=== PATIENT | female | born 1990 | race African-American/Black ===

== ENCOUNTER 2019-10-28 20:06 | Emergency (ER) | payer OTHER, MEDICAID ==
[~2019-10-28] VITALS: Ht 160 cm; Wt 136.1 kg
[~2019-10-28 20:06] MED LIST: CLEOCIN HCL150 MG PO; FLEXERIL PO; HYDROCODONE-APA1 TA1 PO; IBUPROFEN 800800 M1 PO; ONDANSETRON HCL4 M2 PO; PENICILLIN VK500 M1 PO
[2019-10-28 20:59] LABS: HEMATOCRIT 36.1 % (37.0-47.0); HEMOGLOBIN 12.2 gm/dL (12.0-15.0); MCHC 33.8 g/dL (28.0-37.0); MCV 82.8 fL (80.0-100.0); NUCLEATED RBCS 0 /100WBC; PLATELET COUNT* 323 thou/uL (150-400); RBC 4.35 mil/uL (4.20-5.00); RDW-CV 13.7 % (10.5-14.5)
[2019-10-28 21:07] LABS: CALCIUM 8.4 mg/dL (8.5-10.1); POTASSIUM 3.8 mmol/L (3.5-5.1); PROTIME 10.1 Seconds (9.20-11.50)
[2019-10-28 21:12] LABS: ALBUMIN 3.2 g/dL (3.4-5.0); TOTAL BILIRUBIN 0.6 mg/dL (<0.1-1.0); TOTAL PROTEIN 6.9 g/dL (6.4-8.2)
[2019-10-28 21:42] LABS: ABSOLUTE LYMPHOCYTES 1.7 thou/uL (0.8-5.3); ABSOLUTE MONOCYTES 0.3 thou/uL (0.0-1.2); ABSOLUTE NEUTROPHILS 11.1 thou/uL (1.6-8.1); ANISOCYTOSIS Occasional; PLATELET ESTIMATE ADEQUATE
[2019-10-29 00:20] LABS: URINE BILIRUBIN NEGATIVE (Negative); URINE BLOOD NEGATIVE (Negative); URINE CLARITY CLEAR; URINE COLOR YELLOW; URINE GLUCOSE-RANDOM NEGATIVE (Negative); URINE KETONES NEGATIVE (Negative); URINE LEUKOCYTES-REFLEX 1+ (Negative); URINE PROTEIN NEGATIVE (Negative); URINE SPECIFIC GRAVITY 1.015 (1.005-1.030)
[2019-10-29 00:21] LABS: URINE NITRITE-REFLEX POSITIVE (Negative)
[2019-10-29 00:45] LABS: CASTS None Seen /LPF (None Seen); SQUAMOUS >10 Many /LPF (0-3)
[2019-10-29 00:46] LABS: BACTERIA-REFLEX >30 Many /HPF (None Seen); CRYSTALS None Seen /LPF (None Seen); URINE RBC None Seen /HPF (0-2); URINE WBC-REFLEX 6-15 Few /HPF (0-5)
[2019-10-29] MEDS ORDERED: HYDROCODON-ACE1 EAC8 PO (01:07)
[2019-10-29] MEDS ORDERED: CIPROFLOXACIN500 M1 PO (01:07)
[2019-10-29 01:50] VITALS: BP 120/75
[2019-10-29 03:10] LABS: CALCIUM OXALATE >10 Many /LPF (None Seen)
--- NOTE | 2019-10-29 14:16 | EKG ---
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 : 1990 Requested By: Briana Boyd Order Number: [id number] MD: Marshall Bryant Measurements Intervals [place] Rate: 108 P: 48 ME: 152 QRS: 92 QRSD: 106 T: -16 QT: 316 QTc: 424 Interpretive Statements Sinus tachycardia Borderline right axis deviation Low voltage, precordial leads Borderline T abnormalities, diffuse leads No previous ECG available for comparison Electronically Signed On 10-29-2019 14:15:24 CDT by Marshall Bryant [email or web address] <ELECTRONICALLY SIGNED> By: Marshall Bryant MD, [facility] 10/29/19 1415 [id number] [id number] Marshall Bryant MD, [facility] /EPI
== END 2019-10-29 01:50 | disposition home or self-care (01) ==
LOC: M.ERS 20:06
PROVIDERS: Emergency Medicine
DX: N39.0 Urinary tract infection, site not specified (principal); E66.01 Morbid (severe) obesity due to excess calories; Z68.43 Body mass index [BMI] 50.0-59.9, adult; Z88.2 Allergy status to sulfonamides

== ENCOUNTER 2020-11-23 19:40 | Inpatient (IN) | payer OTHER, MEDICAID ==
[~2020-11-23] VITALS: Ht 160 cm; Wt 149.1 kg
[~2020-11-23 19:40] MED LIST changes: +CIPROFLOXACIN500 M1 PO; +HYDROCODON-ACE1 EAC8 PO
[2020-11-23 19:54] VITALS: BP 150/89
[2020-11-23 21:24] LABS: HEMATOCRIT 34.5 % (37.0-47.0); MCH 27.4 pg (26.0-34.0); MCHC 34.7 g/dL (28.0-37.0); MCV 79.1 fL (80.0-100.0); MPV 8.6 fl. (7.2-11.1); NUCLEATED RBCS 0 /100WBC; PLATELET COUNT* 219 thou/uL (150-400); RBC 4.36 mil/uL (4.20-5.00); WBC 6.1 thou/uL (4.0-11.0)
[2020-11-23 21:42] LABS: CALCIUM 7.7 mg/dL (8.5-10.1); CREATININE 0.8 mg/dL (0.6-1.3)
[2020-11-23 21:55] LABS: ALBUMIN 3.1 g/dL (3.4-5.0); TOTAL BILIRUBIN 0.4 mg/dL (<0.1-1.0)
[2020-11-23 22:11] LABS: URINE BILIRUBIN NEGATIVE (Negative); URINE BLOOD NEGATIVE (Negative); URINE CLARITY CLEAR; URINE COLOR YELLOW; URINE GLUCOSE-RANDOM NEGATIVE (Negative); URINE KETONES TRACE (Negative); URINE LEUKOCYTES-REFLEX NEGATIVE (Negative); URINE NITRITE-REFLEX POSITIVE (Negative); URINE PROTEIN NEGATIVE (Negative)
[2020-11-23 22:17] LABS: ABSOLUTE LYMPHOCYTES 0.5 thou/uL (0.8-5.3); ABSOLUTE MONOCYTES 0.1 thou/uL (0.0-1.2); ABSOLUTE NEUTROPHILS 5.5 thou/uL (1.6-8.1); LARGE PLATELETS RARE; PLATELET ESTIMATE ADEQUATE
[2020-11-23 22:18] LABS: MICROCYTES Occasional
[2020-11-23 22:20] LABS: SQUAMOUS 4-10 Moderate /LPF (0-3); URINE WBC-REFLEX 0-5 Rare /HPF (0-5)
[2020-11-23 22:21] LABS: CASTS None Seen /LPF (None Seen); CRYSTALS None Seen /LPF (None Seen); MUCUS 0-3 Light strn/LPF (None Seen); URINE RBC 0-2 Rare /HPF (0-2)
[2020-11-24 00:14] VITALS: BP 138/72
[2020-11-24 01:08] VITALS: BP 128/68
[2020-11-24 04:20] VITALS: BP 106/57
--- NOTE | 2020-11-24 05:18 | NUR ---
REPORT RECEIVED PER DONAL IN ED THAT PT ADMITTED FOR COVID PNA, TACHYCARDIA, AND IS 8 WEEKS . PT ARRIVED VIA ED CART AT 0000. PT WAS ANXIOUS. SOIL SURVEYOR WAS TRACING ST W/ PULSE 117. PT WAS HYPERVENTILATING. O2 SAT 98%-100% ON 2L. RN SAT W/ PT AND HELPED CALM HER DOWN. PT HAS BEEN TRACING SR ON SOIL SURVEYOR. RESTING WV IS 88BPM. PT RR IS 18 AND UNLABORED. PT IS A/OX4. ADMISSION ASSESSMENTS COMPLETE CHARTED. HOURLY ROUNDS COMPLETE CHARTED. PT CURRENTLY SLEEPING. WILL CONT. TO MONITOR.
[2020-11-24 10:03] LABS: HEMATOCRIT 36.2 % (37.0-47.0); HEMOGLOBIN 12.2 gm/dL (12.0-15.0); MCH 27.2 pg (26.0-34.0); MCHC 33.7 g/dL (28.0-37.0); MCV 80.7 fL (80.0-100.0); MPV 8.8 fl. (7.2-11.1); RBC 4.48 mil/uL (4.20-5.00); RDW-CV 14.3 % (10.5-14.5); WBC 3.8 thou/uL (4.0-11.0)
[2020-11-24 10:11] LABS: CALCIUM 7.6 mg/dL (8.5-10.1); CREATININE 0.8 mg/dL (0.6-1.3); POTASSIUM 3.4 mmol/L (3.5-5.1)
[2020-11-24 11:54] VITALS: BP 119/75
--- NOTE | 2020-11-24 12:57 | NUR ---
CM spoke with Pt via phone. Covid positive in enhanced precautions. Pt is A&O. Resides at home with and kids, currently . No DME. No hx of HH or SNF. On o2. ID consulted. Following for dc needs.
--- NOTE | 2020-11-24 16:26 | EKG ---
[place] [address] ELECTROCARDIOGRAM REPORT Name: SHRADDHA DHALIWALH NIC Room: [address] ADM [place] ..#: [id number] Admission: 11/23/20 Attend Phys: Sandor Aguilera Discharge: Date of : [birth year] Date of Service: 11/23/202013 Report #: [id number] THIS REPORT FOR: //name// [facility] ED Test Date: 2020-11-23 Test Time: 20:14:53 Pat Name: MILA DHALIWAL Department: Room: [facility] Gender: F Heel Spr[employer] First: : 1990 Requested By: Briana Boyd Order Number: [id number] MD: Patrick Nice Measurements Intervals [place] Rate: 116 P: 37 CT: 146 QRS: 91 QRSD: 96 T: -22 QT: 310 QTc: 431 Interpretive Statements Sinus tachycardia Borderline right axis deviation Borderline repolarization abnormality Compared to ECG 10/28/2019 21:59:[address]-T changes persist Electronically Signed On 11-24-2020 16:26:04 CDT by Patrick Nice [email or web address] <ELECTRONICALLY SIGNED> By: Patrick Nice MD, FAC 11/24/20 1626 13 13 Patrick Nice MD, [facility] /EPI
[2020-11-24 16:50] VITALS: BP 118/72
--- NOTE | 2020-11-24 19:31 | NUR ---
PT A&OX4, PLEASANT AND COOPERATIVE, NO C/O PAIN, GIVEN PRN ZOFRAN FOR NAUSEA X1. HEART RATE SR-ST. ENCOURAGED TO SIT IN CHAIR AND USE INCENTIVE SPIROMETER. COMPRESSION STOCKING APPLIES TO PATIENT
[2020-11-25 00:55] VITALS: BP 114/70
[2020-11-25 04:00] VITALS: BP 128/66
[2020-11-25 04:52] LABS: HEMATOCRIT 34.6 % (37.0-47.0); HEMOGLOBIN 11.7 gm/dL (12.0-15.0); MCHC 33.7 g/dL (28.0-37.0); MPV 8.7 fl. (7.2-11.1); RBC 4.33 mil/uL (4.20-5.00); RDW-CV 14.7 % (10.5-14.5); WBC 11.3 thou/uL (4.0-11.0)
[2020-11-25 05:11] LABS: ALBUMIN 2.7 g/dL (3.4-5.0); CALCIUM 7.5 mg/dL (8.5-10.1); CREATININE 0.7 mg/dL (0.6-1.3); MAGNESIUM 1.8 mg/dL (1.8-2.4); POTASSIUM 3.3 mmol/L (3.5-5.1); TOTAL BILIRUBIN 0.4 mg/dL (<0.1-1.0); TOTAL PROTEIN 6.7 g/dL (6.4-8.2)
--- NOTE | 2020-11-25 05:56 | NUR ---
PT WAS RESTLESS THE LAST HALF OF THE SHIFT, REPORTING INCREASED PAIN AND NAUSEA, ZOFRAN AND TYLENOL ORDERS WERE OBTAINED AND ADMINISTERED. PT NSR ON MONITOR, IVF RUNNING PER ORDER. PT TOOK SHOWER TO CLEAN HERSELF FROM A BOUT OF INCONTINENCE OF STOOL SHE HAD IN BED. PT STILL REPORTING DIARRHEA. SHE IS STILL ON 2L NC. CONTACT PRECAUTIONS IN PLACE, CALL LIGHT WITHIN REACH.
[2020-11-25 08:50] VITALS: BP 134/86
--- NOTE | 2020-11-25 13:04 | NUR ---
Remains on 2L o2. On remdisivir and ivabx. Pt to move to [facility] unit
[2020-11-25 16:00] VITALS: BP 113/57
[2020-11-25 20:00] VITALS: BP 137/82
[2020-11-26] VITALS: BP 134/78
[2020-11-26 04:02] VITALS: BP 142/84
--- NOTE | 2020-11-26 04:54 | NUR ---
ASSUMED CARE OF PT AFTER REPORT AT 1930. PT A&OX4. VSS. PHYSICAL ASSESSMENT COMPLETED AND CHARTED. PT ON O2 AT 2LNC. PT TRACING SR/ST ON TELE. PT UPADLIB. PT COMPLAINED OF GENERALIZED BODY, DIARRHEA & NAUSEA-MED GIVEN PER MAR. MAINTAINED ON ENHANCED ISOLATION. CALL LIGHT WITHIN REACH.
[2020-11-26 05:10] LABS: PREALBUMIN 13.1 mg/dL (18.0-35.7)
[2020-11-26 08:02] VITALS: BP 131/71
--- NOTE | 2020-11-26 12:58 | NUR ---
Nutrition: Pt admitted with COVID, in isolation. Currently . Assessed for high BMI. Wt: 328#. Labs, meds reviewed. Possible e. coli UTI. Pt on full liquid diet. Nausea, diarrhea. Hopeful for diet advancement. She is taking a vitamin. Inadequate oral intake R/T diet order AEB liquid diet ordered. Please advance diet as appropriate. Consider mild risk.
--- NOTE | 2020-11-26 15:51 | NUR ---
PLAN OF CARE: PHYSICIAN INFORMS OF POSSIBLE WEEKEND D/C FOR PT AND PLAN TO WEAN PT'S O2 NEEDS. PT REMAINS ON 2L O2, AND DID NOT HAVE HOME OXYGEN PRIOR TO ADMIT. CM D/C PLANNING NEEDS TBD. CM WILL REMAIN AVAILABLE TO ASSIST AND FOLLOW NEEDED.
[2020-11-26 16:00] VITALS: BP 129/77
--- NOTE | 2020-11-26 18:09 | NUR ---
Pt weaned off O2 this afternoon; sats upper 90s on RA. C/O intermittent nausea this morning, but has eaten turkey sandwich for lunch and supper, tolerated well. Voiding without difficulty, and reports dose of Immodium last night "worked." VSS. Will continue to monitor.
[2020-11-26 20:00] VITALS: BP 137/46
[2020-11-27] VITALS (7 sets, daily range): BP systolic 117–135; BP diastolic 62–83
--- NOTE | 2020-11-27 03:24 | NUR ---
ASSUMED CARE OF PT AFTER REPORT AT 1930. PT A&O4. VSS. PHYSICAL ASSESSMENT COMPLETED AND CHARTED. PT ON RA/2L NC PRN. SOB ON EXERTION NOTED. PT TRACING SR ON TELE. CALL LIGHT WITHIN REACH.
[2020-11-27 05:05] LABS: HEMATOCRIT 32.8 % (37.0-47.0); HEMOGLOBIN 11.1 gm/dL (12.0-15.0); MCH 26.8 pg (26.0-34.0); MCHC 33.8 g/dL (28.0-37.0); MCV 79.3 fL (80.0-100.0); MPV 8.8 fl. (7.2-11.1); RBC 4.14 mil/uL (4.20-5.00); RDW-CV 14.4 % (10.5-14.5); WBC 9.6 thou/uL (4.0-11.0)
[2020-11-27 07:53] LABS: ALBUMIN 2.7 g/dL (3.4-5.0); CALCIUM 7.9 mg/dL (8.5-10.1); CREATININE 0.7 mg/dL (0.6-1.3); MAGNESIUM 2.3 mg/dL (1.8-2.4); POTASSIUM 3.9 mmol/L (3.5-5.1); TOTAL BILIRUBIN 0.5 mg/dL (<0.1-1.0); TOTAL PROTEIN 6.7 g/dL (6.4-8.2)
--- NOTE | 2020-11-27 18:37 | NUR ---
Pt reports feeling better. On room air, but uses 2L O2 with activity. VSS. Nausea improved as well. Will continue to monitor.
[2020-11-28 00:23] VITALS: BP 136/76
--- NOTE | 2020-11-28 03:42 | NUR ---
ASSUMED CARE OF PT AFTER REPORT AT 1930. PT A&OX4. VSS. PHYSICAL ASSESSMENT COMPLETED AND CHARTED. PT ON RA/2LNC PRN. SOB/DESATURATION NOTED WITH ACTIVITY. PT TRACING SR ON TELE. CALL LIGHT WITHIN REACH.
[2020-11-28 04:51] VITALS: BP 119/66
[2020-11-28 06:04] LABS: PREALBUMIN 16.4 mg/dL (18.0-35.7)
[2020-11-28 07:30] VITALS: BP 135/76
[2020-11-28] MEDS ORDERED: NEBULIZER MISCELL (09:09)
[2020-11-28] MEDS ORDERED: PRENATAL PO (09:09)
[2020-11-28] MEDS ORDERED: DEXAMETHASONE1 MG PO (09:09)
[2020-11-28] MEDS ORDERED: XOPENEX0.63 MG/3 NEB (09:09)
[2020-11-28] MEDS ORDERED: CEFDINIR300 MG PO (09:09)
[2020-11-28 12:00] VITALS: BP 141/70
[2020-11-28 16:00] VITALS: BP 136/78
--- NOTE | 2020-11-28 17:00 | NUR ---
pt needing home 02 and nebulizer for home. RADHA RN CALLED CEREAL MILLER AT HOME AND SHE STATED THIS WILL NOT BE ABLE TO BE DONE TODAY IT NEEDS TO BE PRE-AUTHERIZED. RADHA ALSO PUT TEXT IN TO DR. RODRIGES TO INFORM HER THAT PT WILL NOT BE ABLE TO BE DISCHARGED TODAY. THIS NURSE INFORMED PT SHE WILL NOT BE ABLE TO BE DISCHARGED WE ARE UNABLE TO GET HER HOME 02 AND NEB MACHINE TODAY. PT VERBALIZED UNDERSTANDING.
--- NOTE | 2020-11-28 19:41 | NUR ---
A&OX 4, PWD. TOLERATED RA MOST OF DAY. JUST WALKED IN 1 TIME AND NOTICED PT HAD NC ON AT 2L PER NC. PT GETS UP TO COMMODE INDEPENDENTLY. HAS BEEN SITTING IN CHAIR MOST OF DAY AND TOLERATING IT WELL.02 SAT 94%. DIMINISHED LUNGS ALL LOBES. 1+PEDAL EDEMA NOTED. LAST BM YESTERDAY. SL RIGHT FA AND MIDLINE IN LEFT UPPER ARM. NO C/O. WILL CONTINUE TO MONITOR.
[2020-11-28 20:00] VITALS: BP 149/59
[2020-11-29 00:31] VITALS: BP 138/78
[2020-11-29 04:26] VITALS: BP 92/41
--- NOTE | 2020-11-29 05:51 | NUR ---
ASSUMED CARE OF PT AFTER REPORT AT 1930. PT A&OX4. VSS. PHYSICAL ASSESSMENT COMPLETED AND CHARTED. PT ON RA/2LNC. PT TRACING SR ON TELE. PT DENIES ANY PAIN. PT ABLE TO SLEEP WELL ON BED. CALL LIGHT WITHIN REACH.
[2020-11-29 08:00] VITALS: BP 113/53
[2020-11-29 13:03] VITALS: BP 110/57
[2020-11-29 14:13] VITALS: BP 110/57
--- NOTE | 2020-11-29 16:41 | NUR ---
PLAN OF CARE: PHYSICIAN INFORMS OF PLAN FOR THE PT TO D/C PENDING HOME O2 AND R.T. TESTING. PER CHART R.T. REST AND EX OX COMPLETED AND INDICATES NO HOME O2 NEEDED. NO OTHER CM D/C PLANNING ANTICIPATED. CM WILL REMAIN AVAILABLE TO ASSIST AND FOLLOW NEEDED.
--- NOTE | 2020-11-29 17:38 | NUR ---
RECEIVED REPORT AROUND 0715. ASSUMED CARE. VS AND ASSESSMENT CHARTED. IVS INTACT. HEART MONITOR ATTACHED THIS AM AT SR. MEDS GIVEN PER JUL. HOURLY ROUNDING PERFORMED. ISOLATION INTACT. DISCHARGE ORDERS RECEIVED. REST AND EXERCISE DONE PER RESPIRATORY. NO O2 REQUIREMENTS. DISCHARGE PACKET GIVEN TO PT. COMMUNICATED UNDERSTANDING. IV'S TAKEN OUT. HEART MONITOR OFF. PT LEFT VIA WHEEL CHAIR WITH NURSING STAFF AND ALL BELONGINGS OFF UNIT AT 1730.
== END 2020-11-29 17:30 | disposition home or self-care (01) | DRG 177 ==
LOC: M.ERS 19:40 → M.2W 23:02 → M.ORTHSURG 23:02 → M.TBA-ER 23:02 → M.2W 11-24 00:10 → M.ORTHSURG 11-25 12:46
PROVIDERS: Emergency Medicine; Internal Medicine; ADMIT Internal Medicine; ATTEND Internal Medicine
PROC: XW033E5 Introduction of Remdesivir Anti-infective into Peripheral Vein, Percutaneous Approach, New Technology Group 5 (ICD-10-PCS; principal; 2020-11-24)
DX: U07.1 COVID-19 (principal); J12.82 Pneumonia due to coronavirus disease 2019; J15.6 Pneumonia due to other Gram-negative bacteria; Z68.43 Body mass index [BMI] 50.0-59.9, adult; E66.01 Morbid (severe) obesity due to excess calories; R00.0 Tachycardia, unspecified; E87.6 Hypokalemia; Z33.1 Pregnant state, incidental; Z88.2 Allergy status to sulfonamides